=== PATIENT | male | born 1940 | race Caucasian/White ===

== ENCOUNTER 2017-02-14 08:29 | Day surgery (SDC) | payer MEDICARE, BC ==
[~2017-02-14] VITALS: Ht 180.3 cm; Wt 77.9 kg
== END 2017-02-14 14:14 | disposition home or self-care (01) ==
LOC: SSS 08:29 → EDSTATUS 09:30 → SSS 14:14
PROC: B01B1ZZ Fluoroscopy of Spinal Cord using Low Osmolar Contrast (ICD-10-PCS; principal; 2017-02-14)
DX: M50.123 Cervical disc disorder at C6-C7 level with radiculopathy (principal); M47.894 Other spondylosis, thoracic region; Z88.7 Allergy status to serum and vaccine; Z98.1 Arthrodesis status